=== PATIENT | male | born 1990 | race Caucasian/White ===

== ENCOUNTER 2018-12-02 07:43 | Day surgery (SDC) | payer MEDICAID ==
[~2018-12-02 07:43] MED LIST: CEFAZOLIN 1 GM INJ; CEFAZOLIN 2 GM/50 ML (PMX) 50 ML IVPB; DEXAMETHASONE 4 MG/ML 5 ML INJ; ONDANSETRON 4 MG INJ; SOD CHLORIDE 0.9% 1,000 ML IV; SUGAMMADEX SODIUM 200 MG/2 ML VIAL IV
[2018-12-02] MEDS ORDERED: FENTAnyl 50 MCG/ML VIAL (09:10)
[2018-12-02] MEDS ORDERED: PROPOFOL 20 ML (09:10)
[2018-12-02] MEDS ORDERED: LIDOCAINE 2% (SDV) 5 ML INJ (09:10)
[2018-12-02] MEDS ORDERED: NEOSTIGMINE 3 MG/3 ML SYRINGE (09:10)
[2018-12-02] MEDS ORDERED: MIDAZOLAM 1 MG/ML 2 ML INJ (09:10)
[2018-12-02] MEDS ORDERED: ROCURONIUM 50 MG INJ (09:10)
[2018-12-02] MEDS ORDERED: GLYCOPYRROLATE 0.4 MG INJ (09:10)
[2018-12-02] MEDS ORDERED: SUCCINYLCHOLINE CHLORIDE 100 MG/5 ML SYG IV (09:53)
[2018-12-02] MEDS: LIDOCAINE 1% (MPF) 30 ML INJ (11:27)
[2018-12-02] MEDS: BUPIVACAINE 0.5%/EPI (SDV) 30 ML INJ (11:27)
[2018-12-02] MEDS ORDERED: FENTAnyl 50 MCG/ML VIAL IV ×3 (11:30)
[2018-12-02] MEDS ORDERED: METOCLOPRAMIDE 10 MG INJ IV (11:30)
[2018-12-02] MEDS ORDERED: OXYCODONE/ACETAMINOPHEN (5/325) TAB PO (11:30)
[2018-12-02] MEDS ORDERED: MEPERIDINE 25 MG INJ IV (11:30)
[2018-12-02] MEDS ORDERED: hydrALAzine 20 MG INJ IV (11:30)
[2018-12-02] MEDS ORDERED: HYDROmorphONE 1 MG/5 ML IV SYRINGE IV (11:30)
[2018-12-02] MEDS ORDERED: LABETALOL HCL 20MG INJ IV (11:30)
[2018-12-02] MEDS: ONDANSETRON 4 MG INJ IV (11:35)
[2018-12-02] MEDS: HYDROmorphONE 1 MG/5 ML IV SYRINGE IV ×3 (11:36→11:53)
== END 2018-12-02 13:25 | disposition home or self-care (01) ==
LOC: SDS 07:43
DX: L02.31 Cutaneous abscess of buttock (principal); L72.3 Sebaceous cyst
CPT/HCPCS: 11402; 71045; 88304